=== PATIENT | female | born 1945 | race Caucasian/White ===

== ENCOUNTER 2017-07-15 23:10 | Emergency (ER) | payer OTHER ==
[~2017-07-15] VITALS: Ht 160 cm; Wt 66.7 kg
[2017-07-15 23:35] LABS: *BILIRUBIN,URIN NEGATIVE (NEGATIVE); *BLOOD, URINE Trace-intact (NEGATIVE); *CLARITY,URINE CLEAR (CLEAR); *COLOR,URINE YELLOW (YELLOW); *KETONES,URINE NEGATIVE (NEGATIVE); *PROTEIN,URINE NEGATIVE (NEGATIVE); *UROBILINOGEN,URINE 0.2 E.U./dl (NORMAL); LEUKOCYTE ESTERASE ,URINE 1+ (NEGATIVE); NITRITE, URINE NEGATIVE (NEGATIVE); UGLUCOSE NEGATIVE (NEGATIVE)
--- NOTE | 2017-07-15 23:36 | NUR ---
PT CAME TO ER C/O LOWER BACK PAIN/L FLANK PAIN X5 DAYS. PT STATES SHE BELIEVES IT MIGHT BE A KIDNEY STONE, BUT REPORTS NO PREVIOUS HX OF KIDNEY STONES. DENIES DYSURIA.
[2017-07-15 23:45] LABS: BACTERIA,URINE FEW /HPF (NONE SEEN); RBC,URINE 0-3 /HPF (0-3); SQUAMOUS EPITHELIAL CELL,UR FEW /HPF (NONE SEEN)
[2017-07-15] MEDS ORDERED: SULFAMETH/TRIMETH 800/160 MG TABLET ONE (23:57)
--- NOTE | 2017-07-15 23:57 | NUR ---
Patient discharged to home in stable conditon. Written and verbal after care instructions given. Patient verbalizes understanding of instructions. Patient ambulated from ER in steady gait accompanied by friend. All belongings with pt. VSS. No acute distress noted.
[2017-07-15 23:59] VITALS: BP 138/89
[2017-07-16] MEDS ORDERED: SULFAMETH/TRIMETH 800/160 MG TABLET PO ONE
== END 2017-07-16 | disposition home or self-care (01) ==
LOC: ER 23:21
DX: N39.0 Urinary tract infection, site not specified (principal)
CPT/HCPCS: A4663

== ENCOUNTER 2025-02-20 14:48 | Emergency (ER) | payer MEDICARE, OTHER ==
[~2025-02-20] VITALS: Ht 160 cm; Wt 66.7 kg
[~2025-02-20 14:48] MED LIST: CYCL5TAB4 PO; IBUP600T51 PO
[2025-02-20 14:54] VITALS: BP 162/85
[2025-02-20] MEDS ORDERED: METH4TAB3 PO (15:24)
[2025-02-20] MEDS ORDERED: [UNRECOGNIZED DRUG - CODE] TP (15:24)
[2025-02-20] MEDS ORDERED: DIPH25CA83 PO (15:24)
[2025-02-20] MEDS ORDERED: CLOT15CR5 TP (15:24)
[2025-02-20 15:30] VITALS: BP 162/85; TEMP 98.7; O2SAT 97
== END 2025-02-20 15:30 | disposition home or self-care (01) ==
LOC: ER 14:48
DX: L30.9 Dermatitis, unspecified (principal); J45.909 Unspecified asthma, uncomplicated; Z90.49 Acquired absence of other specified parts of digestive tract; Z90.89 Acquired absence of other organs; Z98.890 Other specified postprocedural states
CPT/HCPCS: A4606; A4663